=== PATIENT | female | born 1990 | race Caucasian/White ===

== ENCOUNTER 2022-04-09 10:32 | Outpatient (CLI) | payer OTHER, SELFPAY ==
--- NOTE | 2022-04-09 10:45 | CRLHL7_ITS ---
For Patients: As a result of the Century Cures Act, medical imaging exams and procedure reports are released immediately into your electronic medical record. You may view this report before your referring provider. If you have questions, please contact your health care provider. CLINICAL HISTORY: BRUISING DUE TO INJURY, LLQ PAIN, EVAL OVARIES TECHNIQUE: 2D mendez scale ultrasound. In addition color Doppler and spectral Doppler analysis was performed of the pelvis using a transvaginal and transabdominal approach. FINDINGS: The myometrium has a normal uniform echotexture. The uterus measures 7.6 x 3.4 x 3.9 cm. The endometrial lining appears normal and measures 8 mm in thickness. The right ovary measures 4.2 x 2.2 x 2.9 cm in size and the right ovary measures 2.9 x 1.9 x 1.8 cm. The ovaries demonstrate normal arterial and venous blood flow on color Doppler and spectral Doppler analysis. There are no suspicious fluid collections within the cul-de-sac. IMPRESSION: Normal pelvic ultrasound. Normal ovaries. No torsion. Dictated by Sumeet Davidson MD @ 04/09/2022 11:42:41 AM (Electronically Signed)
== END 2022-04-09 10:33 | disposition home or self-care (01) ==
PROVIDERS: Visit Provider Nurse Practitioner Family
DX: S30.1XXA Contusion of abdominal wall, initial encounter (principal); M79.662 Pain in left lower leg
CPT/HCPCS: 76830; 76856; 93976